=== PATIENT | female | born 1940 | race Caucasian/White ===

== ENCOUNTER → 2016-05-02 | Outpatient (CLI) | payer OTHER ==
[~2016-05-02] VITALS: Ht 165.1 cm; Wt 60.3 kg
[~2016-05-02] MED LIST: ASPIR 8181 MG PO; LISINOPRIL20 MG PO; METOPROLOL TART25 MG PO; MULTIVITAMINS1 EAC7 PO; OMEGA-31000 M1 PO; SIMVASTATIN40 MG PO; TRAMADOL 50 MG50 MG PO; ZANTAC 150MG T150 MG PO
--- NOTE | ~2016-05-02 | S ---
[facility] [place] [address] SURGICAL PATH RPT PROCEDURE Name: YAJAIRA BEAULIEU Room #: REG [facility].#: [id number] Admission: 05/02/16 Date of : 36 Discharge: Report #: [id number] Path Case #: [id number] PATHOLOGY REPORT COLLECTION DATE: 05/02/2016 RECEIVED DATE: 05/03/2016 SUBMITTING PHYS: Dr. Momo Rivera OTHER PHYS: Dr. Edwin Rowland SPECIMEN(S) RECEIVED: A.Transverse colon B.Descending colon C.Sigmoid colon D.Rectum * * * * * * * * * * * * FINAL DIAGNOSIS: A. Large intestine, transverse colon, endoscopic biopsy: - Mild chronic active colitis, history of Crohn's disease. - Negative for dysplasia or malignancy. B. Large intestine, descending colon, endoscopic biopsy: - Mild chronic active colitis, history of Crohn's disease. - Negative for dysplasia or malignancy. C. Large intestine, sigmoid, endoscopic biopsy: - Mild chronic active colitis, history of Crohn's disease. - Negative for dysplasia or malignancy. D. Large intestine, rectum, endoscopic biopsy: - Quiescent colitis, history of Crohn's disease. - Negative for dysplasia or malignancy. COMMENT: Examination shows patchy involvement of all the fragments sampled with a few showing focal mild active cryptitis and others showing essentially unremarkable crypts. The lamina propria cellularity is mixed, and mildly increased. Basal plasmacytosis is not present. There are no granulomata identified. Surface epithelial ulceration is not identified. There are no architectural abnormalities present as well. Overall, findings are patchy and certainly compatible with the provided history of Crohn's disease. There is no dysplasia or malignancy present. (IUV:csd; d/t: 05/06/2016) PATHOLOGIST: Joan Atkinson M.D. REPORT ELECTRONICALLY SIGNED BY: Joan Atkinson M.D. DATE/TIME: 05/06/2016 16:34 * * * * * * * * * * * * [address] [address] SURGICAL PATH RPT PROCEDURE Name: YAJAIRA BEAULIEU Room #: REG [facility]#: [id number] Admission: 05/02/16 Date of : 36 Discharge: Report #: [id number] Path Case #: [id number] GROSS PATHOLOGY: A. Received in formalin labeled "Yajaira Beaulieu, transverse colon," are nine segments of reddy soft tissue measuring 1.2 x 1.2 x 0.2 cm in aggregate dimensions and ranging from 0.1 to 0.5 cm in maximum dimension. The specimen is submitted entirely in cassette A1. B. Received in formalin labeled "Yajaira Beaulieu, descending colon," are multiple (greater than 10) segments of reddy soft tissue measuring 1.1 x 0.8 x 0.3 cm in aggregate dimensions and ranging from 0.2 to 0.8 cm in maximum dimension. The specimen is submitted entirely in cassette B1. C. Received in formalin labeled "Yajaira Beaulieu, sigmoid," are eight segments of reddy soft tissue measuring 1.2 x 1.1 x 0.2 cm in aggregate dimensions and ranging from 0.2 to 0.5 cm in maximum dimension. The specimen is submitted entirely in cassette C1. D. Received in formalin labeled "Yajaira Beaulieu, rectum," are six segments of reddy soft tissue measuring 1.1 x 1.1 x 0.2 cm in aggregate dimensions and ranging from 0.3 to 0.5 cm in maximum dimension. The specimen is submitted entirely in cassette D1. (CAA; 05/03/2016) CLINICAL HISTORY: History of Crohn's INITIAL CPT CODE(S): A; 13197 B; 78621 C; 17942 D; 74689 Professional services performed by [facility] at [place] [address], [place] [address] Technical services performed by [facility] at [address] [place] [address], [address], [place] [address]. [facility] [address] [place] [address] PHONE: [phone] DIRECTOR: Oh Vigil M.D. * * * END OF REPORT * * *
--- NOTE | ~2016-05-02 | P ---
[facility] [place] [address] PROCEDURE REPORT Name: MARTHA BEAULIEU Room #: REG [facility]#: [id number] Admission: 05/02/16 Attend Phys: Momo Rivera MD Discharge: Date of : 36 Report #: [id number] THIS REPORT FOR: //name// CC: Momo Rowland MD BRIEF HISTORY: The patient is a 75-year-old woman for high-risk screening colonoscopy due to a history of inflammatory bowel disease with Crohn's disease with previous right hemicolectomy. She has a history of breast cancer. PREOPERATIVE DIAGNOSIS: High-risk screening colonoscopy. POSTOPERATIVE DIAGNOSES: 1. Oagk-sl-yqqwullz sigmoid diverticulosis coli. 2. Unremarkable ileocolonic anastomosis, without evidence of active inflammatory disease. MEDICATIONS: Deep sedation with propofol per anesthesia. SPECIMENS: 1. Random biopsies, transverse colon, rule out dysplasia. 2. Random biopsies, descending colon, rule out dysplasia. 3. Random biopsies, sigmoid colon, rule out dysplasia. 4. Random biopsies, rectum, rule out dysplasia. ESTIMATED BLOOD LOSS: 3 mL. PROCEDURE: Colonoscopy to surgical anastomosis and distal ileum with biopsy. FINDINGS: Prior to propofol sedation, procedure of colonoscopy was reviewed with the patient as well as potential risks and its complications. She indicates she understands and desires to proceed. DESCRIPTION OF PROCEDURE: The patient was down in the supine position because of history of left hip dislocation. Subsequently, a [employer] video colonoscope was introduced in the rectum and advanced under direct vision to the ileocolonic anastomosis. Ileocolonic anastomosis was identified. It was noted to be unremarkable, though. There was no evidence of inflammatory disease. In the past, she had ulceration in this area. No ulcerations were seen. No neoplastic lesions were seen. At that point, the scope was slowly withdrawn and careful circumferential views were obtained. Upon slow withdrawal of the scope, the prep was noted to be excellent. The mucosa was within normal limits, normal vascular pattern and normal light reflex. Inflammatory lesions were not seen. No polyps or mass lesions were seen. She had unremarkable and normal colonic mucosa throughout. Multiple surveillance biopsies were obtained. These were done randomly as again no specific lesions were seen. As we withdrew the scope, [facility] [address] [place] [address] PROCEDURE REPORT Name: MARTHA BEAULIEU Room #: REG [facility].#: [id number] Admission: 05/02/16 Attend Phys: Momo Rivera MD Discharge: Date of : 36 Report #: [id number] she was noted to have normal mucosa. There was [id number] sigmoid diverticular disease, without endoscopic evidence of diverticulitis. The scope was withdrawn in the rectum. Upon retroflexion, no abnormalities were seen. The scope was withdrawn. The patient tolerated the procedure well. CONDITION OF THE PATIENT UPON DISCHARGE: Following the procedure, the patient was drowsy and arousable. She will be discharged to home when fully ambulatory. INSTRUCTIONS TO THE PATIENT AND FAMILY AT THE TIME OF DISCHARGE: No inflammatory neoplastic changes were seen. We will follow up on biopsies and make further recommendations. However, at this point in life, there may be minimal benefit from continued routine surveillance. We will discuss further with the patient. She is to return to see me in followup in the office at least once yearly for monitoring of her inflammatory bowel disease. Withdrawal time from the ileocolonic anastomosis, including biopsies was 15 minutes. The patient was noted to have evidence of Mobitz on a rhythm strip prior to the procedure. This was a little bit more pronounced during the procedure. I discussed with anesthesia. They will obtain a 12-lead EKG. We will also check electrolytes and magnesium. We will discuss with the patient. It is noted she is stable and had stable blood pressure and pulse during the entire exam. She should follow up with her career technical education teacher. <ELECTRONICALLY SIGNED> By: Momo Rivera MD 05/03/16 [id number] Momo Rivera MD /nt
--- NOTE | ~2016-05-02 | EKG ---
[address] [place] [address] ELECTROCARDIOGRAM REPORT Name: MARTHA BEAULIEU Room #: REG [facility]#: [id number] Admission: 05/02/16 Attend Phys: Momo Rivera MD Discharge: Date of : 36 Report #: [id number] THIS REPORT FOR: //name// [facility] Test Date: 2016-05-02 Test Time: 09:20:16 Pat Name: MARTHA BEAULIEU Department: Room: Gender: F [employer]: SILVANA : 1940 Requested By: Momo Rivera Order Number: [id number] MD: Karlos Trotter Measurements Intervals [place] Rate: 59 P: 63 NM: 177 QRS: 63 QRSD: 99 T: 64 QT: 492 QTc: 488 Interpretive Statements Sinus rhythm Borderline prolonged QT interval No previous ECG available for comparison Electronically Signed On 05-03-2016 8:22:47 CDT by Karlos Trotter [email or web address] <ELECTRONICALLY SIGNED> By: Karlos Trotter MD, [facility] 05/03/16 0822 9 9 Karlos Trotter MD, FACC /EPI
[2016-05-02 09:34] LABS: CALCIUM 8.7 mg/dL (8.5-10.1); CREATININE 0.8 mg/dL (0.6-1.3); MAGNESIUM 1.9 mg/dL (1.8-2.4); POTASSIUM 3.4 mmol/L (3.5-5.1)
== END | disposition home or self-care (01) ==
LOC: GI 06:20
PROVIDERS: Specialist
DX: K58.9 Irritable bowel syndrome, unspecified (principal); K50.90 Crohn's disease, unspecified, without complications; Z85.3 Personal history of malignant neoplasm of breast; K57.30 Diverticulosis of large intestine without perforation or abscess without bleeding
CPT/HCPCS: 62110; 62900